=== PATIENT | female | born 1980 | race Caucasian/White ===

== ENCOUNTER → 2020-09-07 12:14 | Outpatient (CLI) | payer OTHER, SELFPAY ==
--- NOTE | ~2020-09-07 | MM_ITS ---
EXAMINATION: MM screening maliha BI w riley HISTORY: Screening mammogram TECHNIQUE: Craniocaudal and mediolateral oblique 3-D tomosynthesis images were obtained and synthetic 2-D images were generated. Bilateral rotated lateral CC views. CAD analysis was submitted and interp reted. COMPARISON: 07/28/2014 right breast ultrasound examination BREAST PARENCHYMAL COMPOSITION: There are scattered areas of fibroglandular density. Scattered bilate ral benign calcifications. FINDINGS: There are bilateral mammographic asymmetries. Bilateral diagnostic mammography is recommend ed, with ultrasound if required. . IMPRESSION: 1. Bilateral mammographic asymmetries 2. Bilateral diagnostic mammography is recommended, with ultrasound if required BI-RADS Category 0: Incomplete: Needs additional imaging evaluation. Reviewed, dictated and finalized at location A. ITAL PHARMACY TECHNICIAN
== END ==
PROVIDERS: Visit Provider Nurse Practitioner
DX: Z12.31 Encounter for screening mammogram for malignant neoplasm of breast (principal); R92.8 Other abnormal and inconclusive findings on diagnostic imaging of breast
CPT/HCPCS: 77063; 77067

== ENCOUNTER → 2020-09-27 09:01 | Outpatient (CLI) | payer OTHER, SELFPAY ==
--- NOTE | ~2020-09-27 | MM_ITS ---
EXAMINATION: MM diagnostic mammo BI HISTORY: Bilateral mammographic asymmetries reported on 09/07/2020 screening mammogram TECHNIQUE: Additional 3-D tomosynthesis images of both breasts were performed and synthetic 2-D image s were generated. CAD analysis was submitted and interpreted. High resolution complete bilateral cru[address] st ultrasound was performed. COMPARISON: 09/07/2020 bilateral digital screening mammogram FINDINGS: MAMMOGRAPHIC FINDINGS: Bilateral mammographic asymmetries are again noted, which may be consistent with fibroglandular asymm etry and/or mass(es). Approximately 5.5 x 8.5 mm subareolar right indeterminate opacity 2 cm deep to the nipple. Probable benign circumscribed 4.5 x 5.8 mm left upper outer quadrant intramammary lymph node. There are scattered bilateral benign microcalcifications. ULTRASOUND: Right breast: There is an antiparallel irregular hypoechoic approximately 6 x 4.6 x 3.8 mm lesion in the subareolar area of the right breast. No internal vascularity is noted. Ultrasound-guided biopsy is recommended. 11:00 5 cm from nipple: Parallel circumscribed 2.3 x 5.8 mm hypoechoic area without internal vascular ity or suspicious shadowing. Left breast: 2:00 9 cm from nipple: 3.3 x 6.7 x 4.1 mm intramammary lymph node IMPRESSION: 1. Suspicious irregular hypoechoic up to 6 mm subareolar right breast lesion 2. Ultrasound-guided biopsy of right breast subareolar lesion is recommended. BI-RADS category 4, suspicious findings. On September 27, 2020 10:[address] Alcocer telephoned the report and ultrasound guided biopsy recommendati on of subareolar right breast mass to Dr. Pavon's nurse Margarita. Reviewed, dictated and finalized at location A. UTER DESIGNER IMPRESSION: 1. Suspicious irregular hypoechoic up to 6 mm subareolar right breast lesion 2. Ultrasound-guided biopsy of right breast subareolar lesion is recommended. BI-RADS category 4, suspicious findings. On September 27, 2020 10:[address] Alcocer telephoned the report and ultrasound guid ed biopsy recommendation of subareolar right breast mass to Dr. Pavon's nurse Margarita.
--- NOTE | ~2020-09-27 | US_ITS ---
US breast BI complete DATE: 09/27/2020 10:00 Please refer to September 27, 2020 combined bilateral diagnostic mammogram and bilateral breast ultraso und report. IMPRESSION: BI-RADS Category 4: Suspicious abnormality; biopsy should be considered Recommendation: Ultrasound-guided biopsy of right subareolar 6 mm mass Reviewed, dictated and finalized at Location A. Reviewed, dictated and finalized at location A. W MACHINE HAND IMPRESSION: BI-RADS Category 4: Suspicious abnormality; biopsy should be consid ered Recommendation: Ultrasound-guided biopsy of right subareolar 6 mm mass
== END ==
PROVIDERS: Visit Provider Obstetrics & Gynecology Gynecology
DX: N63.41 Unspecified lump in right breast, subareolar (principal); R92.0 Mammographic microcalcification found on diagnostic imaging of breast
CPT/HCPCS: 76641; 77066

== ENCOUNTER 2023-04-01 11:31 | Outpatient (NON) | payer OTHER, SELFPAY | END 2023-04-01 11:32 | disposition home or self-care (01) | PROVIDERS: PCP Family Medicine; Visit Provider Nurse Practitioner | DX: D23.39 Other benign neoplasm of skin of other parts of face (principal) | CPT/HCPCS: 88305 ==

== ENCOUNTER 2023-12-30 17:58 | Emergency (ER) | payer OTHER, SELFPAY ==
--- NOTE | 2023-12-30 18:00 | ED.EAR ---
HPI - Ear Problem General Chief complaint: Ear Stated complaint: Ear Pain Source: patient and RN notes reviewed Mode of arrival: ambulatory Limitations: no limitations History of Present Illness HPI Narrative: Patient is a 43-year-old female who presents to the [facility] with complaints of bilateral ear pain. She states that the pain is been present for 1 week. She denies ear drainage. Denies recent fevers. She states that she has had history of frequent ear infections. Related Data Allergies Allergy/AdvReac Type Severity Reaction Status Date / Time amoxicillin Allergy Unknown Hives Verified 12/30/23 18:02 Penicillins Allergy Unknown Hives Verified 12/30/23 18:02 Review of Systems Review of Systems: CONSTITUTIONAL: Denies fever, chills, or sweats. EYES: Denies visual changes, redness, or discharge. ENT: Reports otalgia but denies sore throat CARDIOVASCULAR: Denies chest pain, palpitations, or edema. RESPIRATORY: Denies cough or dyspnea. GASTROINTESTINAL: Denies abdominal pain, nausea, vomiting, or diarrhea. GENITOURINARY: Denies dysuria or hematuria. SKIN: Denies rash or itching. MUSCULOSKELETAL: Denies back pain, joint pain, or myalgia. NEUROLOGIC: Denies headache, numbness, or weakness. Pertinent positives per HPI. [facility] Past Medical History Medical History Strep pharyngitis Surgical History Surgical History History of loop electrical excision procedure (LEEP) History of tubal ligation Family History Family History Father Hypertension Family history of diabetes mellitus in first degree relative Liver cancer Other Diabetes mellitus Family history of arthritis Social History Social History Smoking status: Never smoker Second hand tobacco smoke exposure: No Alcohol intake: current Drinks per week: 1 Alcohol use details: occasional Substance use: never Substance use type: does not use Living arrangements: with family Occupation/Education: occupation Gender identity (if verbalized by the patient): Female Sexual Orientation (if Verbalized by the Patient): Straight or Heterosexual Comments At the time of my signature, I reviewed and agree with the nursing past medical, surgical, social, and family history. There is no relevant family history pertinent to the patient complaint. Exam Narrative: GENERAL: This is a well-nourished, well-developed patient, in no apparent distress. HEAD: normocephalic, atraumatic. EYES: Sclera clear/white. Vision is grossly intact. EARS: External ears normal. Right TM erythematous and bulging; large amount of cerumen noted. Left TM normal. Hearing grossly intact. NOSE: External nose normal with no obvious nasal discharge, nares without redness, no rhinorrhea. THROAT: Mucous membranes moist, posterior pharynx clear. NECK: Neck supple, non-tender without lymphadenopathy, masses or thyromegaly. CARDIOVASCULAR: Regular rate and rhythm without murmurs, gallops, or rubs. RESPIRATORY: Clear to auscultation. Breath sounds equal bilaterally. No wheezes, rales, or rhonchi. GASTROINTESTINAL: Abdomen soft, non-tender, nondistended. Bowel sounds are active. No hepato-splenomegaly, or palpable masses. No guarding. SKIN: warm, intact with no suspicious lesions or rash, good texture and turgor. NEURO: awake, alert, and oriented to person, place and time. There were no obvious focal neurologic abnormalities. Course Course Level of Care: Express Care Visit Vital Signs Vital signs: Vital Signs Temperature 97.8 F 12/30/23 18:04 Pulse Rate 83 12/30/23 18:04 Respiratory Rate 16 12/30/23 18:04 Blood Pressure 111/84 12/30/23 18:04 Pulse Oximetry 99 12/30/23 18:04 Oxygen Delivery Room Air 12/30/23 18:04 Te
[2023-12-30 18:04] VITALS: BP 111/84; PULSE 83; RESP 16; TEMP 36.6; O2SAT 99
== END 2023-12-30 18:23 | disposition home or self-care (01) ==
PROVIDERS: Emergency Provider Nurse Practitioner; PCP Physician Assistant
DX: H66.91 Otitis media, unspecified, right ear (principal)
CPT/HCPCS: 99213; G0463

== ENCOUNTER 2024-02-19 09:11 | Emergency (ER) | payer OTHER, SELFPAY ==
--- NOTE | 2024-02-19 09:18 | ED.EAR ---
HPI - Ear Problem General Chief complaint: Ear Stated complaint: Ear Pain Time Seen by Provider: 02/19/24 09:23 Source: patient Mode of arrival: ambulatory Limitations: no limitations History of Present Illness HPI Narrative: Mary is a 43-year-old female patient presenting to the clinic today with complaints of right ear discomfort and muffled-thinks that she may have a ear wax impaction. Denies any fever, chills, body aches, runny nose, cough, or congestion. Related Data Allergies Allergy/AdvReac Type Severity Reaction Status Date / Time amoxicillin Allergy Unknown Hives Verified 02/19/24 09:21 Penicillins Allergy Unknown Hives Verified 02/19/24 09:21 Review of Systems Review of Systems: Pertinent positives per HPI. Patient denies any fever, chills, rash, headache, visual changes, dizziness, cough, runny nose, sore throat, shortness of breath, chest pain, palpitations, nausea, vomiting, diarrhea, constipation, abdominal pain, or any urinary issues. PMFSH Past Medical History Medical History Strep pharyngitis Surgical History Surgical History History of loop electrical excision procedure (LEEP) History of tubal ligation Family History Family History Father Hypertension Family history of diabetes mellitus in first degree relative Liver cancer Other Diabetes mellitus Family history of arthritis Social History Social History Smoking status: Never smoker Second hand tobacco smoke exposure: No Alcohol intake: current Drinks per week: 1 Alcohol use details: occasional Substance use: never Substance use type: does not use Living arrangements: with family Occupation/Education: occupation Gender identity (if verbalized by the patient): Female Sexual Orientation (if Verbalized by the Patient): Straight or Heterosexual Comments At the time of my signature, I reviewed and agree with the nursing past medical, surgical, social, and family history. There is no relevant family history pertinent to the patient complaint. Exam Narrative: General: Well-developed, well nourished, in no apparent distress Head: Normocephalic, atraumatic Eyes: Pupils equally round and reactive to light bilaterally, EOM intact, sclera and conjunctive clear, no discharge, lids normal Ears: TMs intact and clear, right cerumen impaction in the ear canal, ear irrigation was performed, ear canals now clear, no drainage, grossly hearing normal. Nose: Nares patent, no discharge, no inflammation, no sinus tenderness. Mouth: Oropharynx without lesions or masses, good dentition, MMM. Neck: Supple, trachea midline, no enlargement of anterior or posterior cervical nodes, no thyroid masses or goiter palpable. Cardio: Regular rate and rhythm, s1 and s2 normal, no murmur appreciated. Resp: Clear to auscultation bilaterally anteriorly and posteriorly, no rhonchi, rales, wheezing or rubs Course Course Emergency Course: Portions of this record may have been created with voice recognition software. Level of Care: Express Care Visit Vital Signs Vital signs: Vital signs reviewed Procedures Ear Wax Removal Right Ear: Ear Wax Removal Date: 02/19/24 Results: Re-examined: cerumen removed completely TM Examination: TM(s) intact, normal appearance Ear Canal Exam: atraumatic Patient Tolerated Procedure: well and no complications Complications: no problems Technique: ear canal irrigated and ear canal curetted Additional Comments: Verbal consent obtained for ear lavage. Risk and benefits explained to patient and they voiced understanding. A mixture of half warm water and half peroxide was used to irrigate ear canals. An lighted ear curette
[2024-02-19 09:20] VITALS: BP 109/78; PULSE 76; RESP 16; TEMP 36.4; O2SAT 99
== END 2024-02-19 09:37 | disposition home or self-care (01) ==
PROVIDERS: Emergency Provider Nurse Practitioner Family; PCP Physician Assistant
DX: H61.21 Impacted cerumen, right ear (principal)
CPT/HCPCS: 69210; 99212; G0463

== ENCOUNTER 2025-08-10 00:44 | Day surgery (SDC) | payer OTHER, SELFPAY ==
[2025-08-06 13:16] VITALS: BMI 22.6
--- NOTE | 2025-08-06 13:17 | PC.NURSE ---
[facility] has started construction of its new state of the art ER which will open Spring 2026. With this, we anticipate parking may be a challenge for some our surgical patients and families. Parking spaces are limited but are available for all Surgical, obstetrics, and ER patients sharing this lot. If you arrive and find you are having a hard time finding a parking space, please note that we understand the challenges, please drive around the hospital and park near Hospital Entrance 1. When you enter this entrance, you can ask a volunteer to direct or take you back to the surgical waiting area to check in. We appreciate everyone?s understanding of these expected challenges while we build for your future. Report to the Outpatient Waiting Room, entrance under the green pavilion located off [address], at time _1000_ on date _[id number]_. Planned Procedure Time: _1200_.? Time changes happen often and if your time is changed the preop area will call you the afternoon before. - You and your visitor will be asked to self-screen and do not enter if you have any COVID symptoms. Please call surgeon if you need to reschedule. - A mask is optional within the hospital at this time. Patients may have clear liquids (water, carbonated beverages, clear teas, apple juice) until 3 hours prior to surgery with a maximum of 20 ounces. - No food from midnight until time of surgery and no smoking, or chewing tobacco (or any form of nicotine). No chewing gum, candy or mints. Take only the following medications with a SIP of water on the morning of surgery: ___None DO NOT STOP ANY OF YOUR OTHER PRESCRIPTION MEDICATIONS PRIOR TO SURGERY EXCEPT THE FOLLOWING Hold all vitamins and supplements for 3 days per anesthesiologist. Medications to discontinue per physician Date to take last dose Please no make-up, nail uzbek, hairspray, perfume, deodorant, or body powder the day of surgery.? No jewelry (including any body piercings) or valuables the day of surgery, leave them at home.? Please take a shower or bath the night before, or the morning of, surgery with an antibacterial soap.? Wear comfortable, loose fitting clothing.? - Jewelry must be removed prior to entering the operating room.? Rings and piercings that are not removed may be cut off. - The hospital will not accept responsibility for valuables.? - Please leave all valuables, including medications, at home the day of surgery. If you are going home after surgery, a licensed recycler forklift driver truck driver must drive you home.? - NO public transportation without another adult if you receive anesthesia. - We recommend that an adult stay with you for 24 hours following discharge. - We also recommend that you do not drive, make important decision, drink alcoholic beverages, or take any drugs that were not prescribed by your health care provider for at least 24 hours after your discharge time. Follow any additional instructions given to you from your surgeon. Telephone instructions given to __Mary___and asked if any additional questions and then verbalized understanding. Patient advised to call surgeon office or pre surgery nurse liaison [phone] if any additional questions.
[2025-08-10] VITALS (9 sets, daily range): BP systolic 117–142; BP diastolic 71–94; PULSE 83–112; RESP 12–20; TEMP 36.1–36.6; O2SAT 98–100; BMI 22.9
--- OUTSIDE RECORDS SUMMARY | 2025-08-10 00:46 | XMS_ITS | Clinical Summary ---
Author Organization [facility] Address [address] [place] [address] Care Team Providers Care Camera Supervisor Name Role Phone Krysten Pavon MD Unavailable Daly Bridges Primary Care Provider [phone] Allergies Active Allergy Reactions Criticality Noted Date Comments Amoxicillin Hives Medium Minocycline Unknown 11/28/2010 HIVES Medications carisoprodoL (SOMA) 350 mg tablet 07/26/20 25 Active ondansetron (ZOFRAN) 4 mg tablet 07/26/20 25 Active oxyCODONE-acet aminophen (PERCOCET) 5-325 mg per tablet 07/26/20 25 Active meclizine (ANTIVERT) 25 mg tablet Take 1 tablet (25 mg total) by mouth 3 (three) times a day as needed for dizziness 20 tablet 07/27/20 25 Active meclizine (ANTIVERT) 25 mg tablet Take 1 tablet (25 mg total) by mouth 3 (three) times a day as needed for dizziness 20 tablet 05/04/20 24 025 Discontinued benzonatate (TESSALON) 200 mg capsuleIndicat ions:Acute cough Take 1 capsule (200 mg total) by mouth 3 (three) times a day as needed for cough keep tessalon out of reach of children, especially children under the age of 10, due to possible serious risk such as if ingested by children under the age of 10. 30 capsule 07/03/20 24 025 Discontinued Active Problems Problem Noted Date Diagnosed Date BMI 23.0-23.9, adult 07/27/2025 Assessment & Plan (07/27/2025 7:48 AM STEM SHAPER): Weight/BMI is in healthy range. Continue healthy lifestyle to maintain. Family history of breast cancer 11/28/2024 Motion sickness 05/04/2024 Assessment & Plan (05/04/2024 4:26 PM CDT): Patient requests refills of her meclizine that she uses when she is in the car for long drive as she has motion sickness. Refills sent Dysfunction of both eustachian tubes 07/14/2022 Assessment & Plan (07/14/2022 9:42 PM STEM SHAPER): Persistent symptoms that seem most consistent with eustachian tube dysfunction. Start antihistamine (Claritin OR Zyrtec), Mucinex 12hour and Steroid nasal spray (Flonase). Will also send Medrol Dosepak Due to persistent symptoms will make referral to ENT. Vertigo 09/05/2021 Assessment & Plan (05/03/2022 8:03 PM CDT): Persistent vertigo symptoms. Continue the meclizine p.r.n.. Encouraged to start Flonase and antihistamine and will see if this is allergy/inner ear related. She still feels as though her hearing is off a little even though ears were washed out in March. If this persists will consider an ENT hearing referral. Assessment & Plan (09/05/2021 7:09 PM STEM SHAPER): Patient states history of vertigo and has she has meclizine in the past with good results. Small supply sent. Recurrent major depressive disorder, in partial remission 09/05/2021 Assessment & Plan (05/04/2024 4:24 PM CDT): Patient has stopped her antidepressant medicines about a year ago. States she has been doing pretty well although does feel some tiredness in the afternoon. She is sleeping well and her head shuts off. Difficult to tell if this could be a sleep apnea versus persistent depression symptoms. Will get her worked up for sleep apnea and if symptoms persist after the sleep apnea workup and/or treatment may revisit starting an SSRI again. Patient is in agreement with the plan Assessment & Plan (05/03/2022 8:03 PM CDT): Stable with Wellbutrin XL 150 and Lexapro 20 mg. Refills available at pharmacy Assessment & Plan (04/03/2022 7:30 AM CDT): Symptoms are stable with the Lexapro and Wellbutrin. Refill sent to pharmacy. Assessment & Plan (12/17/2021 2:40 PM CDT): Patient has all some improvement with the restart of the Wellbutrin XL 150 and Lexapro 10. Still feels like there is room for improvement. Will increase the Lexapro to to 20 mg. May take 2 of the 10 mg tablets until her supply is exhausted and will transition to a 20 mg tablet. Follow-up in 4-6 weeks to reassess Assessment & Plan (09/05/2021 7:11 PM STEM SHAPER): This is a significant, separately identifiable problem that was evaluated and managed on the same day as the wellness exam Patient has had history of depression. Has done well in the past on Lexapro as well as Wellbutrin. She never took both of these together. She states each of the ones individually helped with different things but each 1 also felt like there was still lack of full control. Again, she has never taken them together. Did not have any side effects well on either 1 of the medications. Denies any suicidal homicidal thoughts but does feel at times overwhelmed that she left to get away .Reviewed risks, benefit, alternatives, side effects and proper use. Discussed SSRIs, SNRIs, and Wellbutrin. Will go ahead and start Wellbutrin at 150 mg q.a.m. and Lexapro 10 mg. This is because of the history that she is provided as it sounds like she needs to have a small dose of both. Reviewed in possible side effects and that it may take up to 4-6 weeks to get the full effect of both of these medications. She is angry min. If she has any increased symptoms or concerns she is to call immediately. Vitamin D deficiency 09/05/2021 Assessment & Plan (05/04/2024 4:25 PM CDT): Recheck labs. Patient states she is taking vitamin-D supplement with in college and supplement. She is going to check the amount and let us know Assessment & Plan (05/03/2022 8:03 PM CDT): Supplement Assessment & Plan (09/05/2021 7:12 PM STEM SHAPER): Supplement Arthralgia of ankle 02/05/2013 Pain of foot 01/28/2013 Onycholysis 08/22/2012 Resolved Problems Problem Noted Date Diagnosed Date Resolved Date BMI 24.0-24.9, adult 05/04/2024 025 Assessment & Plan (05/04/2024 3:33 PM CDT): Weight/BMI is in healthy range. Continue healthy lifestyle to maintain. Annual physical exam 05/04/2024 025 Assessment & Plan (05/04/2024 4:25 PM CDT): Encouraged healthy lifestyle, good nutrition and exercise. Encouraged Calcium and Vitamin D and weight bearing exercise for bone health. Reviewed immunizations Reviewed age appropirate screenings. Lipid screening 05/04/2024 08/08/2025 Assessment & Plan (05/04/2024 4:25 PM CDT): Check labs Diabetes mellitus screening 05/04/2024 08/08/2025 Assessment & Plan (05/04/2024 4:25 PM CDT): Check labs At high risk for breast cancer 04/16/2022 11/28/2024 Overview (04/16/2022): Ms. Jim is considered high risk for breast cancer given both her personal and family history. Her TC risk is calculated at 24.5%, which qualifies her for bi- annual screening with MRI and screening mammography. She will return in 05/2022 for a bilateral breast MRI and in 09/2022 for her screening mammogram. She is in agreement with the plan. I have answered her questions and she knows to call with any others. Suzie Wagoner NP Assessment & Plan (05/04/2024 4:25 PM CDT): Patient continues to follow with the high-risk breast cancer clinic. She is alternating 6 month MRIs and mammograms per their instructions. Assessment & Plan (05/03/2022 8:07 PM CDT): Continue per Oncology. She is currently scheduled for Q 6 month MRI of the breast alternating with her screening mammogram. BMI 26.0-26.9,adult 04/03/2022 05/04/20 24 Assessment & Plan (06/21/2022 7:18 AM CDT): Weight/BMI is in healthy range. Continue healthy lifestyle to maintain. Assessment & Plan (05/03/2022 8:04 PM CDT): Weight/BMI is in healthy range. Continue healthy lifestyle to maintain. Assessment & Plan (04/03/2022 7:08 AM CDT): Weight/BMI is in healthy range. Continue healthy lifestyle to maintain. Impacted cerumen of right ear 04/03/2022 04/16/2022 Right acute otitis media 04/03/2022 Assessment & Plan (04/03/2022 7:31 AM CDT): Cerumen impaction of the right ear. Ear was washed. Wax removed. Appears to have an otitis media on the right side. Has penicillin allergy. Will treat with azithromycin. Follow-up in 2-3 weeks as she feels like she has hearing loss that did not change with cerumen impaction removal BMI 26.0-26.9,adult 09/05/2021 04/03/20 22 Assessment & Plan (11/30/2021 7:18 AM CDT): Weight/BMI is in healthy range. Continue healthy lifestyle to maintain. Assessment & Plan (09/05/2021 2:31 PM STEM SHAPER): Weight/BMI is in healthy range. Continue healthy lifestyle to maintain. Annual physical exam 09/05/2021 022 Assessment & Plan (09/05/2021 7:08 PM STEM SHAPER): Encouraged healthy lifestyle, good nutrition and exercise. Encouraged Calcium and Vitamin D and weight bearing exercise for bone health. Reviewed immunizations Reviewed age appropirate screenings. Fatigue 09/05/2021 08/08/2025 Assessment & Plan (05/04/2024 4:25 PM CDT): Probably multifactorial. Check labs and followup to re-evaluate Assessment & Plan (09/05/2021 7:08 PM STEM SHAPER): Probably multifactorial. Check labs and followup to re-evaluate Diabetes mellitus screening 09/05/2021 12/17/2021 Assessment & Plan (09/05/2021 7:08 PM STEM SHAPER): Check labs Lipid screening 09/05/2021 12/17/2021 Assessment & Plan (09/05/2021 7:08 PM STEM SHAPER): Check labs Abnormal finding on breast imaging 10/17/2020 11/28/2024 Assessment & Plan (12/17/2021 2:40 PM CDT): Biopsy complete. It appears benign but I am not sure of what follow-up would be suggested. Recommend that she follow back up with Oncology and with her strong history of family cancers may benefit from having genetic counseling. If she has difficulty making the appointment she is to call will await their recommendations. She follows up at her next visit and has not had genetic counseling offered will pursue at that time. Patient is in agreement. Skin neoplasm 08/22/2012 11/28/2024 Encounters Date Type Department Care Team Description 07/29/2025 Results Follow-Up [facility] [address] [address] Daly Bridges PA SURESWAB(R), CT/NG, T VAGINALIS, Pap and HPV, reflex to HPV Genotypes 07/27/2025 7:30 AM STEM SHAPER Office Visit [address] [place] [address] Daly Bridges PA Encounter for routine gynecological examination with Papanicolaou smear of cervix (Primary Dx); Cervical cancer screening; Screening examination for STD (sexually transmitted disease); At risk for sexually transmitted disease due to unprotected sex; Motion sickness, sequela; BMI 23.0-23.9, adult 06/28/2025 Orders Only [address] [place] [phone] Daly Bridges PA Lipid screening (Primary Dx); Diabetes mellitus screening; Vitamin D deficiency; Annual physical exam; Fatigue, unspecified type 06/28/[address] [place] [phone] Daly Bridges PA Additional Services Or Orders from Last 3 Months Immunizations Immunization Administration Dates Next Due Influenza, Unspecified 07/27/2025(Deferr ed: Patient Refused),06/21/2022(Deferred: Patient Refused) Surgical History Surgery Date Site/Laterality Comments BREAST BIOPSY 10/18/2020 Right BREAST BIOPSY 10/17/2021 Right US GUIDED BIOPSY LYMPH NODE SUPERFICIAL LEFT 10/17/2021 N/A SECTION LASIK TUBAL LIGATION Medical History Medical History Date Comments History of other malignant n eoplasm of skin Carcinoma Of The Skin - (Add ed by TW Conv) Arthritis Anxiety Cancer (HCC) Allergic rhinitis Dizziness At high risk for breast cancer 04/16/2022 Ben Jmi is considered high risk for breast cancer given both her personal and family history. Her TC risk is calculated at 24.5%, which qualifies her for bi-annual screening with MRI and screening mammography. She will return in 05/2022 for a bilateral breast MRI and in 09/2022 for her screening mammogram. She is in agreement with the plan. I have answered her questions and she knows to call wi Skin neoplasm 08/22/2012 Abnormal finding on breast imaging 10/17/2020 Family History Medical History Relation Name Comments Arthritis Father Family history of arthritis - (Added by TW Conv) Diabetes Father Family history of diabetes mellitus - (Added by TW Conv) Liver cancer Father Prostate cancer Maternal Grandfather Breast cancer Maternal Grandmother No Known Problems Mother Colon cancer Paternal Grandfather Breast cancer Paternal Grandmother Relation Name Status Comments Father Maternal Grandfather Maternal Grandmother Mother Alive Paternal Grandfather Paternal Grandmother Social History Tobacco Use Types Packs/Day Years Used Date Smoking Tobacco: Never Smokeless Tobacco: Never Tobacco Cessation:Counseling Given: Not Answered Alcohol Use Standard Drinks/Week Comments Yes 2 (1 standard drink = 0.6 oz pur e alcohol) PHQ-2 Answer Date Recorded PHQ-2 Total Score (If total score is 3 or more points, staff should administer the PHQ-9) 0 07/27/2025 AUDIT-C Answer Date Recorded Q1: How often do you have a drink containing alc ohol? 2-4 times a month 07/27/2025 Q2: How many drinks containi ng alcohol do you have on a typical day when you are drinking? 3 or 4 07/27/2025 Q3: How often do you have si x or more drinks on one occasion? 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 Not on file Not on file Not on fi le Last Filed Vital Signs Vital Sign Reading Time Taken Comments Blood Pressure 126/82 07/27/2025 7:41 AM STEM SHAPER Pulse 80 07/27/2025 7:41 AM STEM SHAPER Temperature 37.1 C (98.7 F) 07/27/2025 7:41 AM STEM SHAPER Respiratory Rate 18 11/26/2024 9:49 AM CDT Oxygen Saturation 95% 07/27/2025 7:41 AM STEM SHAPER Inhaled Oxygen Concentration - - Weight 64.8 kg (142 lb 12.8 oz) 07/27/2025 7:41 AM STEM SHAPER Height 167.6 cm (5' 6) 07/27/2025 7:41 AM STEM SHAPER Body Mass Index 23.05 07/27/2025 7:41 AM STEM SHAPER Plan of Treatment Health Maintenance Due Date Last Done Comments Hepatitis C Screening 1980 Varicella Vaccines (1 of 2 - 13+ 2-dose series) 1993 Hepatitis B Screening 1998 HPV Vaccines (1 - 3-dose SCDM series) 2007 DTaP/Tdap/Td Vaccine (2 - Td or Tdap) 06/19/2022 06/19/2012 Breast Cancer Screening-Mammogram 11/26/2025 11/26/2024, 11/21/2023, 2022, Additional history exists Influenza Vaccine (#1) 2026 Postp oned from 04/19/2025 (Patient declined, but will receive in the future) Cervical Cancer Screening 07/27/2026 07/27/2025 Depression Screening 07/27/2026 07/27/2025, 05/04/2024, 06/21/2022, Additional history exists Regular Well Visit/Exam 18-64 07/27/2026 07/27/2025, 05/04/2024, 09/05/2021 Pneumococcal vaccine <65 Aged Out No longer eligible based on patient's age to complete this topic Procedures Procedure Name Priority Date/Time Associated Diagnosis Comments PAP AND HPV, REFLEX TO HPV GENOTYPES Routine 07/27/2025 9:01 AM STEM SHAPER Cervical cancer screening SURESWAB(R), CT/NG, T VAGINALIS Routine 07/27/2025 9:01 AM STEM SHAPER Screening examination for STD (sexually transmitted disease) SCREENING MAMMOGRAM BILATERAL W DEVON Schedule Routine, Read Routine (OP Routine) 11/26/2024 10:37 AM CDT At high risk for breast cancer from Last 3 Months or Most Recently Relevant to Health Maintenance Results * Pap and HPV, reflex to HPV Genotypes (07/27/2025 9:01 AM STEM SHAPER) CLINICAL INFORMATION: [facility] Comment: None given CERVICAL CNACER SCREENING LMP [facility] Comment:UNKNOWN Previous Pap [facility] Comment:NONE GIVEN Prev. Bx [facility] Comment:NONE GIVEN SOURCE: [facility] Comment:Cervix, Endocervix Pap, specimen adequacy [facility] Comment: Satisfactory for evaluation. Endocervical/transformation zone component absent. Age and/or menstrual status not provided HPV interp [facility] Comment: Cytology Results: Negative for intraepithelial lesion or malignancy. COMMENTS [facility] Comment: This Pap test has been evaluated with the ThinPrep(R) Imaging System. Head Of Sales And Marketing Que [facility] Comment: BES, CT(ASCP) CT Screening Location: [place] [address] [address]el [address] CLIA: [id number] Slide preparation performed at: [facility], [address] [place] [address], [address] CLIA: [id number] Comment [facility] Comment: EXPLANATORY NOTE: The Pap is a screening test for cervical cancer. It is not a diagnostic test and is subject to false negative and false positive results. It is most reliable when a satisfactory sample, regularly obtained, is submitted with relevant clinical findings and history, and when the Pap result is evaluated along with historic and current clinical information. Human papillomavirus DNA, High Risk E6/E7 Not Detected NOT DETECTED [facility] Comment: Not Detected High Risk HPV types (16,18,31,33,35,39,45,51,52, 56,58,59,66,68) were not detected. Other HPV types which cause anogenital lesions may be present. The significance of the other types of HPV in malignant processes has not been established. Methodology: Real Time PCR Thin prep-Endocervica l 07/27/2025 9:01 AM STEM SHAPER 07/28/2025 6:38 PM STEM SHAPER us Daly ZEE LAB CYTOLOGY ORDERABLES Fi nal Result [facility] [address] [address] [place] [phone] [facility] [address] [place] [address] * SURESWAB(R), CT/NG, T VAGINALIS (07/27/2025 9:01 AM STEM SHAPER) C. trachomatis RNA NOT DETECTED NOT DETECTED [facility] N. gonorrhoeae RNA NOT DETECTED NOT DETECTED [facility] Comment [facility] Comment: The analytical performance characteristics of this assay, when used to test SurePath(TM) specimens have been determined by [facility]. The modifications have not been cleared or approved by the FDA. This assay has been validated pursuant to the CLIA regulations and is used for clinical purposes. For additional information, please refer to https://education.Zipmark/faq/SJG646 (This link is being provided for information/ educational purposes only.) Trichomonas vaginalis NOT DETECTED NOT DETECTED [facility] Comment: For additional information, please refer to http://121nexus.Zipmark/ faq/Trichomonastma (This link is being provided for informational/ educational purposes only.) Vaginal 07/27/2025 9:01 AM STEM SHAPER 07/28/2025 6:02 AM STEM SHAPER Daly ZEE LAB BLOOD ORDERABLES Final Result [facility] [address] [place] [address] * Screening Mammogram Bilateral W Devon (11/26/2024 10:37 AM CDT) Anatomical Region Laterality Modality Breast Bilateral Mammography Narrative 11/27/2024 2:57 PM CDT Mammogram Technique: Bilateral Digital Breast Tomosynthesis, Bilateral C-view 2D Screening mammogram. Views obtained: bilateral craniocaudal and bilateral mediolateral oblique. Computer Aided Detection was performed. Mammogram Findings: The present examination has been compared to prior imaging studies performed at [facility] on 10/13/2021, 2022 and 11/21/2023. There are scattered areas of fibroglandular density. There is no suspicious abnormality in either breast. Impression: There is no mammographic evidence of malignancy. Annual screening mammography is recommended. OVERALL FINAL ASSESSMENT: BI-RADS CATEGORY 1: Negative. Procedure Note Slime Manley MD - 11/27/2024 Mammogram Technique: Bilateral Digital Breast Tomosynthesis, Bilateral C-view 2D Screening mammogram. Views obtained: bilateral craniocaudal and bilateral mediolateral oblique. Computer Aided Detection was performed. Mammogram Findings: The present examination has been compared to prior imaging studies performed at [facility] on 10/13/2021, 2022 and 11/21/2023. There are scattered areas of fibroglandular density. There is no suspicious abnormality in either breast. Impression: There is no mammographic evidence of malignancy. Annual screening mammography is recommended. OVERALL FINAL ASSESSMENT: BI-RADS CATEGORY 1: Negative. Jyothi Thomas CLAY DIGGER IMG MAMMO PROCEDURES Fi nal Result from Last 3 Months or Most Recently Relevant to Health Maintenance Insurance PENDING SALE TO [facility] PENDING SALE TO [facility] IBEW Care Teams Camera Supervisor Relationship Specialty Start Date End Date Daly Bridges PA [address] [facility] [address] [facility] [address] [place] [address] PCP - General Internal Medicine 09/05/21 Krysten Pavon MD [address] [facility] [address] [place] [address] Referring Physician Gynecology 09/29/20
--- OUTSIDE RECORDS SUMMARY | 2025-08-10 00:46 | XMS_ITS | Clinical Summary ---
Author Organization [facility] Address [address] [place] [address] Care Team Providers Care Pencil Inspector Name Role Phone Unavailable Primary Care Provider Unavailabl e Source Comments [facility],non-owned Affiliates and Associated Physician Practices is amultiple site organization consisting of ambulatory clinics and hospital sitesin [place], [place], [place] and [place]. This disclosure is being madepursuant to the Care Everywhere program and may not contain all information available regarding this patient. Last updated 18.[facility] [employer] Allergies Active Allergy Reactions Criticality Noted Date Comments Amoxicillin 11/28/2010 HIVES Minocycline 11/28/2010 HIVES Medications * Be aware that medications may not be up to date on this document. Alwaysverify current medications with the patient. pentosan polysulfate sodium (ELMIRON) 100 MG capsule Take 100 mg by mouth 3 times daily before meals. Active Meth-Hyo-M Bl-Na Phos-Ph Eben (URIBEL) 118 MG CAPS Take by mouth as needed. Active hydrocodone-acet aminophen (VICODIN) 5-500 MG tablet Take 1-2 Tabs by mouth every 6 hours as needed for Pain. 30 Tab 0 11/29/2010 Active ibuprofen (MOTRIN) 600 MG tablet Take 1 Tab by mouth every 6 hours as needed for Pain. 30 Tab 1 11/29/2010 Active phenazopyridine (PYRIDIUM) 100 MG tablet Take 1 Tab by mouth 3 times daily as needed for Pain. 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 Gender Identity Not on file Sexual Orientation Not on file Last Filed Vital Signs Vital Sign Reading Time Taken Comments Blood Pressure 97/61 11/29/2010 1:10 PM CDT Pulse 71 11/29/2010 12:21 PM CDT Temperature 36.1 C (97 F) 11/29/2010 1:08 PM CDT Respiratory Rate 18 11/29/2010 1:08 PM CDT Oxygen Saturation 100% 11/29/2010 1:08 PM CDT Inhaled Oxygen Concentration - - Weight 59 kg (130 lb) 11/29/2010 9:13 AM CDT Height 167.6 cm (5' 6) 11/29/2010 9:13 AM CDT Body Mass Index 20.98 11/29/2010 9:13 AM CDT Plan of Treatment Health Maintenance Due Date Last Done Comments LIPID TESTING 1980 MAMMOGRAM 1980 HIV SCREENING 1995 HEPATITIS C SCREENING 09/30/1998 DTAP/TDAP/TD VACCINES (1 - Tdap) 1999 HEPATITIS B VACCINE (1 of 3 - 19+ 3-dose series) 1999 PAP SMEAR 2001 HPV VACCINE (1 - 3-dose SCDM series) 2007 DEPRESSION SCREENING 08/19/2024 COVID-19 VACCINE (1 - 2024-2 6 season) 2025 INFLUENZA VACCINE (#1) 2025 ZOSTER VACCINE (1 of 2) 2030 HIB VACCINE Aged Out No longer eligi ble based on patient's age to complete this topic MENINGOCOCCAL (Group B) VACC INE SHARED DECISION-MAKING Aged Out No longer eligibl e based on patient's age to complete this topic MENINGOCOCCAL GROUPS A/C/Y/W VACCINE Aged Out No longer eligible b ased on patient's age to complete this topic PNEUMOCOCCAL VACCINE Aged Out No long er eligible based on patient's age to complete this topic Insurance CIGNA CIGNA
--- OUTSIDE RECORDS SUMMARY | 2025-08-10 00:46 | XMS_ITS | Encounter Summary ---
Author Organization [facility] Address [address] [place] [id number] Care Team Providers Care Security Architect Name Role Phone Krysten Pavon MD Unavailable [phone] Daly Bridges Primary Care Provider [phone] Encounter Details Date Type Department Care Team (Late st Contact Info) Description 07/29/2025 Results Follow-Up [facility] Family Medicine [address] [facility] [address] [place] [address] Daly Bridges PA [address] [facility] [address] [place] [address] SURESWAB(R), CT/NG, T VAGINALIS, Pap and HPV, reflex to HPV Genotypes Social History Tobacco Use Types Packs/Day Years Used Date Smoking Tobacco: Never Smokeless Tobacco: Never Alcohol Use Standard Drinks/Week Comments Yes 2 [...] on file Legal Sex Female 12:26 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 Gender Identity Not on file Sexual Orientation Not on file 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
--- OUTSIDE RECORDS SUMMARY | 2025-08-10 00:46 | XMS_ITS | Clinical Summary ---
Author Organization [facility] [employer] [facility] [employer] Address [address] [facility] [place] [address] Care Team Providers Care Briquetting Machine Operator Name Role Phone Pcp, No Primary Care Provider [phone] Allergies Active Allergy Reactions Criticality Noted Date Comments Amoxicillin Hives Medium 11/28/2010 [facility] Minocycline Other (See Comments) 11/28/2010 [facility]ES Medications No known medications Social History Tobacco Use Types Packs/Day Years Used Date Smoking Tobacco: Never Passive Smoke Exposure: Never Smokeless Tobacco: Never Tobacco Cessation:Counseling Given: Yes Comments No Sex and Gender Information Value Date Recorded Sex Assigned at Not on file Legal Sex Female 7:50 AM EST Gender Identity Not on file Sexual Orientation Not on file Last Filed Vital Signs Vital Sign Reading Time Taken Comments Blood Pressure 132/76 09/22/2024 9:36 AM EST Pulse 100 09/22/2024 9:36 AM EST Temperature 38.7 C (101.7 F) 09/22/2024 9:36 AM EST Respiratory Rate 20 09/22/2024 9:36 AM EST Oxygen Saturation 98% 09/22/2024 9:36 AM EST Inhaled Oxygen Concentration - - Weight 70.3 kg (155 lb) 09/22/2024 9:36 AM EST Height 167.6 cm (5' 6) 09/22/2024 9:36 AM EST Body Mass Index 25.02 09/22/2024 9:36 AM EST Plan of Treatment Health Maintenance Due Date Last Done Comments Depression: Screening Annual ly using PHQ-2/9 in Adults 18 yrs or above (or HM Modifier)([facility]) 1998 Hepatitis C Virus Infection in Adolescents and Adults: Screening (or Modifier) ([facility]) 1998 [facility] Screening Reminder: Alecia fisher for all adults ([facility]) 1998 DTaP/Tdap/Td Vaccines ([facility]) (1 - Tdap) 1999 Pneumococcal Vaccination Scr eening: Pts 0-19 & 19-49 yrs of age ([facility] ) (1 of 2 - PCV) 1999 Cervical Cancer Screenin 1-65 yrs of age (or Modifier) 2001 Cervical Cancer Screening: P ap every 3 yrs pts age 21-65 2001 Cervical Cancer: Pap Screeni ng with Modifier timing ([facility] ) 2001 Cervical Cancer: hrHPV alone or with cotesting Pap for Pts 30-65yrs screening every 5yrs ([facility]) 2001 Flu Vaccination: Yearly for ages 18mos through 64 years (or Modifier)([facility] ) 03/19/2025 COVID-19 Vaccine Screening: Initial Series and Booster Status ([facility]) ( - 2024- season) 2025 Zoster/Shingles Vaccine Seri es Screening: Adults aged 18+ yrs (or HM Modifiers)([facility] ) (1 of 2) 2030 Medical Devices Not on file Insurance [employer] Member Subscriber Plan / Payer (Ef fective 2024-Present) Name:Mary Jim Relation to Subscriber:Self Name:Mary Jim Payer ID:Not on file Group ID:Not on file Type:PPO Address: [place] [address] [address] [place] [address] Care Teams Briquetting Machine Operator Relationship Specialty Start Date End Date Pcp, No PCP - General Family Medicine 09/22/24
--- NOTE | 2025-08-10 08:47 | P.PNAN_ITS ---
Anes - Initial Pre Proc Eval Procedure: Operation Date: 08/10/25 12:00 Proposed Procedures p Bilateral Breast Augmentation - Christiano Ricks MD Date/Time: 08/10/25 08:47 Surgeon: Christiano Ricks MD Pre Op Diagnosis: micromastia Patient Data Age: 44 Gender: F Height: 1.68 m Weight: 63.6 kg Allergies Allergy/AdvReac Type Severity Reaction Status Date / Time amoxicillin Allergy Unknown Hives Verified 08/06/25 13:09 Penicillins Allergy Unknown Hives Verified 08/06/25 13:09 Home Medications ?Medication ?Instructions ?Recorded ?Confirmed ?Type No Home Medications 08/06/25 08/06/25 H istory Patient hx anesthesia problems: post op nausea/vomiting Family hx anesthesia problems: none Results Review: All pre-operative results and documents have been reviewed as part of the pre- operative evaluation. [facility] Past Medical History Medical History Strep pharyngitis Surgical History Surgical History History of loop electrical excision procedure (LEEP) History of tubal ligation Family History Family History Father Hypertension Family history of diabetes mellitus in first degree relative Liver cancer Other Diabetes mellitus Family history of arthritis Social History Social History Smoking status: Never smoker Second hand tobacco smoke exposure: No Alcohol intake: current Drinks per week: 1 Alcohol use details: occasional Substance use: never Substance use type: does not use Living arrangements: with family Occupation/Education: occupation Gender identity (if verbalized by the patient): Female Sexual Orientation (if Verbalized by the Patient): Straight or Heterosexual Spiritual care concerns: No Anes - Eval Final PreProcedure Day of Procedure 08/10/25 08:47 Patient weight: normal Heart: regular rate and rhythm Lungs: clear to auscultation Airway: Mallampati scale class II Neurological: alert and oriented Last oral intake: >/= 8 hours ASA classification: I Emergent: no Anesthetic plan: proceed Anesthesia type and monitoring: general LMA and standard monitoring Other findings: intra op propofol gtt exam per LW Results Review: All pre-operative results and documents have been reviewed as part of the pre- operative evaluation. Informed Consent: The patient's anesthetic plan and its attendant risks and benefits were discussed with the patient/family/POA. Questions were solicited and answers provided to the satisfaction of the patient/family/POA.
[2025-08-10] MEDS: LACTATED RINGERS 1,000 ML 30 ML IV CONT ×2 (11:00→13:39)
[2025-08-10] MEDS: TRANEXAMIC ACID 1,000MG/ISO100 1,000 MG/100 ML BAG 200 MG IVPB (11:00)
--- NOTE | 2025-08-10 11:57 | WPDHPUPDATE1 ---
History and Physical Update Update Date/Time: 08/10/25 11:57 History and Physical has been reviewed, including an updated exam of the patient. There are NO changes in the patient's condition. Risks, benefits, and alternatives have been discussed and questions answered. Patient agrees to proceed with procedure.
[2025-08-10] MEDS: SCOPOLAMINE 1 MG PATCH 1 PATCH TRANSDERM (12:16)
--- NOTE | 2025-08-10 12:20 | P.OP_ITS ---
Procedure Note - Detailed Date of Procedure 08/10/25 Pre-op Diagnosis micromastia Post-op Diagnosis Same Procedure Performed Bilateral augmentation mammaplasty Surgeon Christiano Ricks MD Anesthesia General Findings Bilateral Yasmine Low Cohesive 450cc Subfascial Right: REF# SCF-450 SN [id number] Left: REF# [id number] SN [id number] Description of Procedure She is here today for bilateral breast augmentation. Previously and again today the risks, benefits, alternatives were discussed in extensive detail. I wanted her to be very realistic about the risks involved as well as expectations. We discussed her natural anatomy, fold, and other factors unique to here. Went over the unique risks and outcomes again as well as options and what to expect. We discussed aftercare and what to monitor for. Made sure answered all of her questions to her satisfaction today and consent was obtained. Marked in the preoperative holding area with their verification. Marked the new fold location. The patient was taken to the operating room placed supine on the operating table. Anesthesia was provided by anesthesiology. A surgical time-out was taken. We cleansed the skin and 1% lidocaine and 0.25% Marcaine with epinephrine was used anesthetize as a field block. She was prepped and draped in a standard sterile fashion. Tegaderm nipple Downs were placed. A 15 blade used to make an incision along the inframammary fold. Dissection was continued at 45 degree angle until the chest wall as identified. I elevated a subfascial pocket in the appropriate dimensions based on our preoperative planning for the implant. Also scored the old fold / band for r elease I then copiously irrigated with saline solution and verified a strict hemostasis. Next the use a triple antibiotic and Betadine containing solution to irrigate the pocket. I washed my gloves with the triple antibiotic and Betadine solution. We washed the implant immediately upon opening it with this solution and only opened it when we needed it. I used implant funnel and no-touch technique. The implant was introduced into the pocket using the funnel. Having verified positioning of the implant this was closed using 2-0 PDS followed by 3-0 Monocryl in a running subcuticular 4-0 Monocryl followed by tissue glue. Fluffs and surgical bra were placed. Patient was awoke and taken to PACU without difficulty. All instrument sponge counts were correct at the end of the case. Estimated Blood Loss 20 Drains No Packing No Pathology None sent Complications No immediate complications Condition Stable Disposition PACU
[2025-08-10] MEDS: ceFAZolin 2 GM in SODIUM CHLORIDE 0.9% IV 50 ML 100 ML IVPB (12:33)
[2025-08-10] MEDS: NACL 0.9% IRRIG POUR BOTTLE 900 ML, GENTAMICIN SULFATE INJ 160 MG, CLINDAMYCIN PHOS INJ... IRRIGATION (13:04)
[2025-08-10] MEDS: LIDO 1%/EPINEPHRINE 1:100,000 50 ML VIAL 30 ML INFILTRATE (13:09)
[2025-08-10] MEDS: fentaNYL CITRATE INJ (*CRX) 100 MCG/2 ML VIAL 25 MCG IV PUSH ×4 (14:03→14:32)
[2025-08-10] MEDS: oxyCODONE HCL (*CRX) 5 MG TAB IR PO (15:10)
== END 2025-08-10 15:53 | disposition home or self-care (01) ==
PROVIDERS: PCP Physician Assistant; Visit Provider Surgery Plastic and Reconstructive Surgery
PROC: (CPT 19325; principal; 2025-08-10 12:00)
DX: Z41.1 Encounter for cosmetic surgery (principal); N64.82 Hypoplasia of breast
CPT/HCPCS: 19325; J0690; A9270; J1100; J1580; J2003; J2004; J2250; J2405; J2704; J3010; J3290; J7120